=== PATIENT | male | born 1975 | race Caucasian/White ===

== ENCOUNTER 2016-08-13 18:29 | Outpatient (CLI) ==
[2013-03-01 07:03] VITALS: BMI 28.2
--- NOTE | 2016-08-14 08:06 | DI ---
EXAM: Five views of the lumbar spine HISTORY: Right lower leg pain. COMPARISON: None FINDINGS: The lumbar spine demonstrates no acute compression fracture or subluxation. The facets ar e normal with minimal arthropathy in the lower lumbar spine. The lumbosacral junction is intact. T here is no lytic or blastic lesion. The soft tissues are unremarkable. IMPRESSION: Mild scattered facet arthropathy in the lower lumbar spine with no acute abnormality ot herwise identified.
== END 2016-08-13 18:30 | disposition home or self-care (01) ==
LOC: RAD 18:29
PROVIDERS: ATTEND Pain Medicine Interventional Pain Medicine
DX: G90.521 Complex regional pain syndrome I of right lower limb (principal); G57.81 Other specified mononeuropathies of right lower limb; Z72.0 Tobacco use

== ENCOUNTER 2016-08-15 10:17 | Outpatient (CLI) ==
[2013-03-01 07:03] VITALS: BMI 28.2
[2016-08-15 10:29] LABS: BASOPHILS # (AUTO) 0.1 K/uL (0-0.2); BASOPHILS % (AUTO) 0.5 % (0.0-3.0); EOSINOPHILS # (AUTO) 0.3 K/ul (0.0-0.7); EOSINOPHILS % (AUTO) 2.9 % (0.0-7.0); HEMATOCRIT 43.4 % (42.0-52.0); HEMOGLOBIN 15.1 g/dl (14.0-18.0); IMMATURE GRANULOCYTE % (AUTO) 0.3 % (0.0-5.0); LYMPHOCYTES # (AUTO) 2.3 K/uL (0.60-3.4); LYMPHOCYTES % (AUTO) 24.2 (10.0-50.0); MEAN CORPUSCULAR HGB CONC 34.8 (31.8-35.4); MEAN CORPUSCULAR VOLUME 86.3 fl (80.0-94.0); MONOCYTES # (AUTO) 0.6 K/uL (0.4-2.0); MONOCYTES % (AUTO) 6.5 (0-10); NEUTROPHILS # (AUTO) 6.1 K/ul (2.0-6.9); NEUTROPHILS % (AUTO) 65.6; PLATELET COUNT 232 10^3/uL (140-440); RED BLOOD COUNT 5.03 10^6/ul (4.70-6.10); WHITE BLOOD COUNT 9.32 K/ul (4.2-10.2)
[2016-08-15 11:09] LABS: ALBUMIN 3.7 g/dL (3.4-5.0); ALBUMIN/GLOBULIN RATIO 1.19; ANION GAP 15.4; BILIRUBIN,TOTAL 0.73 mg/dL (0.00-1.20); BUN/CREATININE RATIO 11.39; CALCIUM 9.3 mg/dL (8.2-10.2); CHOL/HDL RATIO 4.1 (4.5-6.4); CREATININE 0.79 mg/dL (0.60-1.10); POTASSIUM 4.4 mmol/L (3.5-5.1); TOTAL PROTEIN 6.8 g/dL (6.4-8.2)
== END 2016-08-15 10:18 | disposition home or self-care (01) ==
LOC: LAB 10:17
PROVIDERS: ATTEND Nurse Practitioner Family
DX: K21.9 Gastro-esophageal reflux disease without esophagitis (principal); Z72.0 Tobacco use
CPT/HCPCS: 36415; 80053; 80061; 84443; 85025; 93005; 93010

== ENCOUNTER 2016-10-06 08:17 | Outpatient (CLI) ==
[2013-03-01 07:03] VITALS: BMI 28.2
[2016-10-06 09:01] LABS: BILIRUBIN,URINE Negative (NEGATIVE); KETONES,URINE Negative (NEGATIVE); LEUKOCYTE ESTERASE ,URINE Negative (NEGATIVE); NITRITE,URINE Negative (NEGATIVE); PROTEIN,URINE Negative (NEGATIVE); URINE, BLOOD Trace-intact (NEGATIVE)
[2016-10-06 09:06] LABS: ADD URINE MICROSCOPIC YES
[2016-10-06 09:10] LABS: BACTERIA,URINE 1+ (NOT PRESENT)
[2016-10-06 09:40] LABS: ALBUMIN 3.9 g/dL (3.4-5.0); ALBUMIN/GLOBULIN RATIO 1.18; ANION GAP 11.1; BILIRUBIN,TOTAL 0.31 mg/dL (0.00-1.20); BUN/CREATININE RATIO 11.84; CALCIUM 9.2 mg/dL (8.2-10.2); CREATININE 0.76 mg/dL (0.60-1.10); POTASSIUM 4.1 mmol/L (3.5-5.1); TOTAL PROTEIN 7.2 g/dL (6.4-8.2)
== END 2016-10-06 08:18 | disposition home or self-care (01) ==
LOC: LAB 08:17
PROVIDERS: ATTEND Nurse Practitioner Family
DX: R86.9 Unspecified abnormal finding in specimens from male genital organs (principal); R94.6 Abnormal results of thyroid function studies
CPT/HCPCS: 36415; 80053; 80074; 81001; 84443; 86592; 86631; 86695; 86696; 86701; 87086; 87800

== ENCOUNTER 2017-04-18 13:29 | Outpatient (CLI) ==
[2013-03-01 07:03] VITALS: BMI 28.2
== END 2017-04-18 13:30 | disposition home or self-care (01) ==
LOC: LAB 13:29
PROVIDERS: ATTEND Pain Medicine Interventional Pain Medicine
DX: Z51.81 Encounter for therapeutic drug level monitoring (principal); Z79.891 Long term (current) use of opiate analgesic; F19.20 Other psychoactive substance dependence, uncomplicated
CPT/HCPCS: 36415; 80053; 82248; 84100

== ENCOUNTER 2017-05-24 12:57 | Outpatient (CLI) ==
[2013-03-01 07:03] VITALS: BMI 28.2
--- NOTE | 2017-05-24 16:42 | MRI ---
EXAM: MRI of the left elbow without contrast COMPARISON: None available. HISTORY: Elbow pain. Fluid in the elbow. TECHNIQUE: Multiplanar noncontrast MR images of the left elbow were acquired using a 1.2 Georgiana magne t. The submitted images are mildly limited by patient motion artifact. FINDINGS: There is no evidence of an acute fracture, osteomyelitis or a marrow infiltrating process. Moderate joint space narrowing degenerative spurring at the ulnohumeral articulation with mild dege nerative changes at the radiocapitellar articulation. There is a small elbow effusion, nonspecific. There is subcutaneous edema throughout the posterior aspect of the elbow. There is a mildly complex T2 hyperintense collection measuring 4.5 x 2.6 x 1.9 cm with thin internal septations. Mild wall thi ckening within the subcutaneous tissues at that level consistent with mildly complex olecranon bursit is. No evidence of an acute fracture, osteomyelitis involving the underlying olecranon process. There is mild distal triceps tendinosis without a tendon tear. Small olecranon bone spur. The dista l biceps and brachialis tendons are intact. There is common extensor tendinosis with a small lateral epicondyle bone spur without a tendon tear. Minimal edema throughout the overlying soft tissues. Mild common flexor tendinosis without evidence of a tendon tear. Edema within the overlying soft tissues. Hyperintense signal involving the proximal fibers of the radial collateral ligament at its humeral at tachment suggesting sequela of a sprain/partial tears scarring without a discrete full-thickness tear on this non arthrographic study. No evidence of a full-thickness tear of the ulnar collateral ligam ent on this non arthrographic study. There is question of some stripping/partial tearing of the liga ment attachment the sublime tubercle and limited assessment. The ulnar nerve is located within the cubital tunnel and grossly unremarkable in appearance. IMPRESSION: 1. 4.5 x 2.6 x 1.9 cm mildly heterogeneous fluid collection within the posterior subcutaneous tissue s suggesting mildly complex olecranon bursitis. Consider aspiration and culture as clinically warran alvaro. Edema throughout the adjacent soft tissues. 2. No acute osseous abnormality. Degenerative changes. Small elbow effusion. 3. Distal triceps tendinosis and enthesopathy without a tendon tear. 4. Mild acute on chronic changes of medial epicondylitis as well as a moderate acute on chronic gray ges of the lateral epicondylitis. 5. Findings suggesting a sprain/partial tear with scarring of the medial collateral ligament. Quest ion sprain and stripping of the ulnar collateral ligament without a full-thickness tear on this non a rthrographic study.
== END 2017-05-24 12:58 | disposition home or self-care (01) ==
LOC: RAD 12:57
PROVIDERS: ATTEND Nurse Practitioner Family
DX: M25.522 Pain in left elbow (principal); M25.422 Effusion, left elbow

== ENCOUNTER 2017-12-12 09:29 | Outpatient (CLI) ==
[2013-03-01 07:03] VITALS: BMI 28.2
== END 2017-12-12 09:30 | disposition home or self-care (01) ==
LOC: LAB 09:29
PROVIDERS: ATTEND Pain Medicine Interventional Pain Medicine
DX: Z79.1 Long term (current) use of non-steroidal anti-inflammatories (NSAID) (principal); Z68.23 Body mass index [BMI] 23.0-23.9, adult
CPT/HCPCS: 36415; 80053; 82248; 84100